=== PATIENT | male | born 1955 | race Caucasian/White ===

== ENCOUNTER 2021-10-24 08:31 | Outpatient (CLI) | payer MEDICARE ==
[2021-10-24] MEDS ORDERED: Magnevist 469MG/ML 20 ML VIAL ONE (09:58)
== END 2021-10-24 08:32 | disposition home or self-care (01) ==
LOC: TBSIIMAG 08:31
PROVIDERS: ATTEND Orthopaedic Surgery
DX: M54.50 Low back pain, unspecified (principal); M47.816 Spondylosis without myelopathy or radiculopathy, lumbar region; Z98.890 Other specified postprocedural states
CPT/HCPCS: 72158; 82565; A9579